=== PATIENT | female | born 1975 | race Caucasian/White ===

== ENCOUNTER 2018-05-20 22:35 | Emergency (ER) | payer MEDICAID ==
[~2018-05-20] VITALS: Ht 154.9 cm; Wt 77.1 kg
[~2018-05-20 22:35] MED LIST: PHEN1TAB64
[2018-05-20] MEDS ORDERED: cloNIDine HCL 0.1 MG TAB PO ONE (23:00)
[2018-05-20 23:32] LABS: Basophils # (auto) 0.1 uL; Basophils % (auto) 0.9 % (0.0-2.0); Eosinophils # (auto) 0.6 uL; Eosinophils % (auto) 7.8 % (0.0-7.0); Hematocrit 39.9 % (36.0-46.0); Hemoglobin 13.3 g/dL (12.2-16.2); Lymphocytes # (auto) 2.2 uL; Lymphocytes % (auto) 27.8 % (10.0-50.0); Mean Corpuscular Hemoglobin 29.1 pg (28.0-32.0); Mean Corpuscular Hgb Conc. 33.3 g/dL (32.0-36.0); Mean Corpuscular Volume 87.2 fL (80.0-100.0); Monocytes # (auto) 0.7 uL; Monocytes % (auto) 8.9 % (0.0-12.0); Neutrophils # (auto) 4.4 uL; Neutrophils % (auto) 54.6 % (37.0-80.0); Platelet Count (auto) 258 10^3/uL (140-450); Red Blood Cells 4.57 10^6/uL (4.0-5.20); Red Cell Distribution Width 13.4 % (11.8-14.3)
[2018-05-20 23:43] LABS: Alanine Aminotransferase 84 U/L (13-56); Albumin 3.7 g/dL (3.4-5.0); Anion Gap 5 (5-15); Aspartate Aminotransferase 45 U/L (15-37); Blood Urea Nitrogen 20 mg/dL (7-18); Calcium 8.6 mg/dL (8.5-10.1); Carbon Dioxide 26 mmol/L (21-32); Chloride 107 mmol/L (98-107); Glucose 105 mg/dL (74-106); Magnesium 2.1 mg/dL (1.6-2.6); Potassium 3.6 mmol/L (3.5-5.1); Sodium 138 mmol/L (136-145)
[2018-05-20 23:48] LABS: Alkaline Phosphatase 80 U/L (45-117); BUN/Creatinine Ratio 29.4; Bilirubin, Total 0.1 mg/dL (0.2-1.0); GFR African American 121 mL/min; GFR Non-African American 100 mL/min; Total Protein 6.8 g/dL (6.4-8.2)
[2018-05-21 03:33] VITALS: BP 157/88
== END 2018-05-21 03:14 | disposition home or self-care (01) ==
LOC: ER 22:37
DX: F41.9 Anxiety disorder, unspecified (principal)
CPT/HCPCS: 36415; 71046; 80053; 83735; 84484; 85025; 93005

== ENCOUNTER → 2019-08-01 | Emergency (ER) | payer MEDICAID ==
[~2019-08-01] VITALS: Ht 154.9 cm; Wt 83.5 kg
[~2019-08-01] MED LIST changes: +LORazepam 0.5 MG TAB PO ONE
[2019-08-01 15:45] LABS: Basophils # (auto) 0.1 uL; Basophils % (auto) 1.1 % (0.0-2.0); Eosinophils # (auto) 0.5 uL; Eosinophils % (auto) 6.6 % (0.0-7.0); Hematocrit 43.4 % (36.0-46.0); Hemoglobin 14.4 g/dL (12.2-16.2); Lymphocytes # (auto) 2.1 uL; Lymphocytes % (auto) 25.2 % (10.0-50.0); Mean Corpuscular Hemoglobin 29.3 pg (28.0-32.0); Mean Corpuscular Hgb Conc. 33.1 g/dL (32.0-36.0); Mean Corpuscular Volume 88.5 fL (80.0-100.0); Monocytes # (auto) 0.7 uL; Monocytes % (auto) 8.9 % (0.0-12.0); Neutrophils # (auto) 4.7 uL; Neutrophils % (auto) 58.2 % (37.0-80.0); Nucleated Red Blood Cells % 0.1 %; Platelet Count (auto) 262 10^3/uL (140-450); White Blood Cell 8.2 10^3/uL (4.4-10.8)
[2019-08-01 15:51] LABS: Calcium 9.3 mg/dL (8.5-10.1); Potassium 4.3 mmol/L (3.5-5.1)
[2019-08-01 15:57] LABS: Albumin 4.1 g/dL (3.4-5.0); BUN/Creatinine Ratio 27.3; Bilirubin, Total 0.5 mg/dL (0.2-1.0); Total Protein 7.8 g/dL (6.4-8.2)
[2019-08-01 16:03] LABS: Urine Bacteria NONE SEEN /hpf (None Seen); Urine Blood TRACE /uL (Negative); Urine Mucus FEW (None Seen); Urine Specific Gravity 1.025 (1.001-1.035); Urine WBC 6 /hpf (0 - 5)
[2019-08-01 16:07] LABS: Alcohol, Urine < 3.0 mg/dL (0-5); Amphetamine Screen, Urine NEGATIVE (NEGATIVE); Barbiturate Scree,Urine NEGATIVE (NEGATIVE); Benzodiazephine Screen, Urine NEGATIVE (NEGATIVE); Cannabinoid Screen, Urine NEGATIVE (NEGATIVE); Cocaine Screen, Urine NEGATIVE (NEGATIVE); Opiate Scree,Urine NEGATIVE (NEGATIVE); Phencyclidine Screen, Urine NEGATIVE (NEGATIVE)
[2019-08-01 17:16] VITALS: BP 153/97
== END | disposition home or self-care (01) ==
LOC: ER 13:15
DX: R42 Dizziness and giddiness (principal); F41.9 Anxiety disorder, unspecified; N39.0 Urinary tract infection, site not specified; R74.8 Abnormal levels of other serum enzymes; F17.210 Nicotine dependence, cigarettes, uncomplicated
CPT/HCPCS: 36415; 70450; 80053; 80307; 81001; 85025; 93005

== ENCOUNTER 2021-05-13 22:35 | Emergency (ER) | payer MEDICAID ==
[~2021-05-13] VITALS: Ht 152.4 cm; Wt 80.7 kg
[~2021-05-13 22:35] MED LIST changes: -LORazepam 0.5 MG TAB PO ONE; +PHEN-1325; -PHEN1TAB64
[2021-05-14 00:15] LABS: Basophils # (auto) 0.1 10 ^3/uL (0-0.2); Eosinophils % (auto) 11.8 % (0.0-7.0); Hemoglobin 14.1 g/dL (12.2-16.2); Lymphocytes # (auto) 2.7 10 ^3/uL (0.4-5.4); Lymphocytes % (auto) 31.7 % (10.0-50.0); Mean Corpuscular Hemoglobin 29.5 pg (28.0-32.0); Mean Corpuscular Hgb Conc. 33.6 g/dL (32.0-36.0); Mean Corpuscular Volume 87.8 fL (80.0-100.0); Monocytes # (auto) 0.7 10 ^3/uL (0-1.3); Neutrophils # (auto) 4.1 10 ^3/uL (1.6-8.6); Neutrophils % (auto) 47.5 % (37.0-80.0); Red Blood Cells 4.79 10^6/uL (4.0-5.20); Red Cell Distribution Width 13.4 % (11.8-14.3); White Blood Cell 8.6 10^3/uL (4.4-10.8)
[2021-05-14 00:58] LABS: Calcium 9.2 mg/dL (8.5-10.1)
[2021-05-14 01:25] LABS: BUN/Creatinine Ratio 20.3; Bilirubin, Total 0.2 mg/dL (0.2-1.0); Potassium 4.1 mmol/L (3.5-5.1); Total Protein 7.4 g/dL (6.4-8.2)
[2021-05-14 02:32] LABS: Urine Bacteria NONE SEEN /hpf (None Seen); Urine Blood Negative /uL (Negative); Urine WBC 28 /hpf (0 - 5)
[2021-05-14 04:35] VITALS: BP 153/98
[2021-05-14] MEDS ORDERED: IOHEXOL 300 MG/ML 100ML BOTTLE IJ ONE (05:55)
== END 2021-05-14 07:28 | disposition still patient (30) ==
LOC: ER 22:36
DX: R10.13 Epigastric pain (principal); R11.2 Nausea with vomiting, unspecified; R07.89 Other chest pain; Z87.891 Personal history of nicotine dependence; Z79.899 Other long term (current) drug therapy
CPT/HCPCS: 36415; 71045; 74177; 80053; 81001; 83605; 83690; 83880; 84484; 85025; 93005; 99285; Q9967

== ENCOUNTER 2022-05-04 08:33 | Emergency (ER) | payer MEDICAID ==
[~2022-05-04] VITALS: Ht 157.5 cm; Wt 81.0 kg
[2022-05-04] MEDS ORDERED: ASPirin 81 mg TAB PO ONE (09:00)
[2022-05-04 09:10] LABS: Basophils # (auto) 0.1 10 ^3/uL (0-0.2); Basophils % (auto) 1.1 % (0.0-2.0); Eosinophils # (auto) 0.6 10 ^3/uL (0-0.8); Eosinophils % (auto) 6.5 % (0.0-7.0); Hemoglobin 13.4 g/dL (12.2-16.2); Lymphocytes # (auto) 2.7 10 ^3/uL (0.4-5.4); Lymphocytes % (auto) 31.9 % (10.0-50.0); Mean Corpuscular Hemoglobin 28.4 pg (28.0-32.0); Mean Corpuscular Hgb Conc. 32.8 g/dL (32.0-36.0); Mean Corpuscular Volume 86.8 fL (80.0-100.0); Monocytes # (auto) 0.7 10 ^3/uL (0-1.3); Monocytes % (auto) 8.4 % (0.0-12.0); Neutrophils # (auto) 4.5 10 ^3/uL (1.6-8.6); Neutrophils % (auto) 52.1 % (37.0-80.0); Red Blood Cells 4.73 10^6/uL (4.0-5.20); Red Cell Distribution Width 14.4 % (11.8-14.3); White Blood Cell 8.6 10^3/uL (4.4-10.8)
[2022-05-04 09:28] LABS: INR 0.95 (0.9-1.15); Partial Thromboplastin Time 26.3 sec (24.6-33.4)
[2022-05-04 09:31] LABS: Albumin 3.7 g/dL (3.4-5.0); Calcium 9.2 mg/dL (8.5-10.1); Potassium 4.4 mmol/L (3.5-5.1)
[2022-05-04 09:34] LABS: BUN/Creatinine Ratio 22.1; Bilirubin, Total 0.2 mg/dL (0.2-1.0); Total Protein 6.7 g/dL (6.4-8.2)
[2022-05-04 09:57] LABS: Urine Amorphous Crystal FEW /hpf (None Seen); Urine Bacteria NONE SEEN /hpf (None Seen); Urine Blood TRACE /uL (Negative); Urine Mucus FEW (None Seen); Urine Specific Gravity 1.027 (1.001-1.035); Urine WBC 1 /hpf (0 - 5)
[2022-05-04 13:37] VITALS: BP 152/95
== END 2022-05-04 13:38 | disposition home or self-care (01) ==
LOC: ER 08:33
DX: R07.89 Other chest pain (principal); E78.5 Hyperlipidemia, unspecified; F17.210 Nicotine dependence, cigarettes, uncomplicated; Z98.51 Tubal ligation status
CPT/HCPCS: 36415; 71045; 80053; 81001; 83880; 84484; 85025; 85379; 85610; 85730; 93005

== ENCOUNTER 2023-01-27 13:19 | Emergency (ER) | payer MEDICAID ==
[~2023-01-27] VITALS: Ht 157.5 cm; Wt 82.5 kg
[2023-01-27] MEDS ORDERED: PANTOPRAZOLE 40 MG/10 ML VIAL INJ IV ONE (13:45)
[2023-01-27 13:59] LABS: Basophils # (auto) 0.1 10 ^3/uL (0-0.2); Eosinophils # (auto) 0.5 10 ^3/uL (0-0.8); Eosinophils % (auto) 5.6 % (0.0-7.0); Hematocrit 41.1 % (36.0-46.0); Hemoglobin 13.8 g/dL (12.2-16.2); Lymphocytes # (auto) 2.3 10 ^3/uL (0.4-5.4); Lymphocytes % (auto) 23.9 % (10.0-50.0); Mean Corpuscular Hemoglobin 29.3 pg (28.0-32.0); Mean Corpuscular Hgb Conc. 33.5 g/dL (32.0-36.0); Mean Corpuscular Volume 87.5 fL (80.0-100.0); Monocytes # (auto) 0.7 10 ^3/uL (0-1.3); Monocytes % (auto) 7.3 % (0.0-12.0); Neutrophils % (auto) 62.2 % (37.0-80.0); Nucleated Red Blood Cells % 0.1 %; Red Blood Cells 4.69 10^6/uL (4.0-5.20); Red Cell Distribution Width 15.1 % (11.8-14.3); White Blood Cell 9.6 10^3/uL (4.4-10.8)
[2023-01-27 14:20] LABS: BUN/Creatinine Ratio 19.1 (10.0-20.0); Calcium 9.5 mg/dL (8.5-10.1); Potassium 4.3 mmol/L (3.5-5.1)
[2023-01-27 14:23] LABS: Bilirubin, Total 0.4 mg/dL (0.2-1.0); Total Protein 7.3 g/dL (6.4-8.2)
[2023-01-27 14:50] LABS: Urine Amorphous Crystal FEW /hpf (None Seen); Urine Bacteria NONE SEEN /hpf (None Seen); Urine Blood Negative /uL (Negative); Urine Clarity CLOUDY (Clear); Urine Color Yellow (Yellow); Urine Protein, UAD TRACE (Negative); Urine Specific Gravity 1.021 (1.001-1.035); Urine Urobilinogen Normal (Negative); Urine WBC 40 /hpf (0 - 5); Urine WBC Clumps PRESENT /hpf (None Seen); Urine pH 7.5 (5.0-8.0)
[2023-01-27] MEDS ORDERED: CIPR-173 PO (14:55)
[2023-01-27] MEDS ORDERED: ZOFR4T PO (14:55)
[2023-01-27] MEDS ORDERED: PANT40TA2 PO (14:55)
[2023-01-27 15:36] VITALS: BP 122/90; PULSE 95; RESP 18; TEMP 98.8; O2SAT 98
== END 2023-01-27 15:39 | disposition home or self-care (01) ==
LOC: ER 13:19
DX: N39.0 Urinary tract infection, site not specified (principal); E11.9 Type 2 diabetes mellitus without complications; E78.5 Hyperlipidemia, unspecified; F17.210 Nicotine dependence, cigarettes, uncomplicated; Z98.51 Tubal ligation status
CPT/HCPCS: 36415; 76705; 80053; 81001; 83690; 84484; 85025; 93005; 96374; 99285; C9113; J7030

== ENCOUNTER 2024-01-29 18:20 | Inpatient (IN) | payer MEDICAID ==
[~2024-01-29] VITALS: Ht 157.5 cm; Wt 81.7 kg
[~2024-01-29 18:20] MED LIST changes: +CIPR-173 PO; +PANT40TA2 PO; +ZOFR4T PO
[2024-01-29 19:01] LABS: Basophils # (auto) 0.1 10 ^3/uL (0-0.2); Eosinophils # (auto) 0.5 10 ^3/uL (0-0.8); Eosinophils % (auto) 5.8 % (0.0-7.0); Hematocrit 41.3 % (36.0-46.0); Hemoglobin 13.6 g/dL (12.2-16.2); Lymphocytes # (auto) 2.3 10 ^3/uL (0.4-5.4); Lymphocytes % (auto) 27.3 % (10.0-50.0); Mean Corpuscular Hemoglobin 28.6 pg (28.0-32.0); Mean Corpuscular Hgb Conc. 32.9 g/dL (32.0-36.0); Mean Corpuscular Volume 86.9 fL (80.0-100.0); Monocytes # (auto) 0.7 10 ^3/uL (0-1.3); Monocytes % (auto) 8.2 % (0.0-12.0); Neutrophils # (auto) 4.8 10 ^3/uL (1.6-8.6); Neutrophils % (auto) 57.7 % (37.0-80.0); Nucleated Red Blood Cells % 0.1 %; Platelet Count (auto) 247 10^3/uL (140-450); Red Blood Cells 4.75 10^6/uL (4.0-5.20); Red Cell Distribution Width 13.6 % (11.8-14.3); White Blood Cell 8.4 10^3/uL (4.4-10.8)
[2024-01-29 19:10] LABS: Alanine Aminotransferase 41 U/L (7-40); Albumin 4.6 g/dL (3.2-4.8); Alkaline Phosphatase 105 U/L (46-116); Anion Gap 6 (5-15); Aspartate Aminotransferase 21 U/L (13-40); BUN/Creatinine Ratio 22.8 (10.0-20.0); Bilirubin, Total 0.5 mg/dL (0.2-1.0); Blood Urea Nitrogen 18 mg/dL (9-23); Calcium 10.3 mg/dL (8.7-10.4); Carbon Dioxide 27 mmol/L (20-30); Chloride 108 mmol/L (98-107); Glucose 103 mg/dL (74-106); Potassium 3.8 mmol/L (3.5-5.1); Sodium 141 mmol/L (136-145); Total Protein 6.8 g/dL (5.7-8.2)
[2024-01-29 19:45] LABS: Urine Bacteria None Seen /hpf (None Seen)
[2024-01-29 20:05] LABS: Amphetamine Screen, Urine Neg (NEGATIVE); Barbiturate Scree,Urine Neg (NEGATIVE); Benzodiazephine Screen, Urine Neg (NEGATIVE); Cannabinoid Screen, Urine Neg (NEGATIVE); Cocaine Screen, Urine Neg (NEGATIVE); Opiate Scree,Urine Neg (NEGATIVE); Phencyclidine Screen, Urine Neg (NEGATIVE); Urine Blood Negative /uL (Negative); Urine Clarity Clear (Clear); Urine Color Light-Yellow (Yellow); Urine Protein, UAD Negative (Negative); Urine Specific Gravity 1.011 (1.001-1.035); Urine Urobilinogen Normal (Negative); Urine WBC 1 /hpf (0 - 5); Urine pH 5.5 (5.0-9.0)
[2024-01-29] MEDS: ASPirin 325 MG TAB PO ONE (22:24)
[2024-01-29] MEDS: NITROGLYCERIN 0.4 MG SL TAB SL ONE (22:25)
[2024-01-29 23:08] VITALS: PULSE 78; RESP 18; O2SAT 98
[2024-01-29] MEDS ORDERED: NITROGLYCERIN 0.4 MG SL TAB SL PRN (23:15)
[2024-01-29] MEDS ORDERED: MORPHINE SULFATE INJ 2 MG/ml SYRG IV PRN (23:15)
[2024-01-29] MEDS ORDERED: TEMAZEPAM 15 MG CAP PO PRN (23:15)
[2024-01-29] MEDS ORDERED: ONDANSETRON HCL 4 MG/2 ML VIAL IV PRN (23:15)
[2024-01-30] VITALS (10 sets, daily range): BP systolic 119–174; BP diastolic 77–102; PULSE 64–117; RESP 14–18; TEMP 97.7–98.3; O2SAT 98–100
[2024-01-30] MEDS: hydrALAZINE HCL 20 MG/ML VL IV PRN (01:54)
[2024-01-30] MEDS ORDERED: LEVO125T7 PO (03:07)
[2024-01-30] MEDS ORDERED: ATOR-507 PO (03:07)
[2024-01-30] MEDS: ACETAMINOPHEN 325 MG TAB PO PRN (03:11)
[2024-01-30] MEDS: LEVOTHYROXINE SODIUM 50 MCG TAB PO SCH (05:47)
[2024-01-30 07:03] LABS: Chloride 110 mmol/L (98-107); Potassium 4.1 mmol/L (3.5-5.1); Sodium 142 mmol/L (136-145)
[2024-01-30 07:04] LABS: Anion Gap 6 (5-15); Carbon Dioxide 26 mmol/L (20-30)
[2024-01-30 07:09] LABS: BUN/Creatinine Ratio 25.8 (10.0-20.0); Blood Urea Nitrogen 17 mg/dL (9-23); Glucose 95 mg/dL (74-106)
[2024-01-30] MEDS ORDERED: NIFEdipine ER 30 MG TAB PO ONE (08:30)
[2024-01-30] MEDS: ASPirin 81 mg TAB PO SCH (09:14)
[2024-01-30] MEDS: LISINOPRIL 5 MG TAB PO SCH (09:16)
[2024-01-30] MEDS: NIFEdipine ER 30 MG TAB PO SCH (09:17)
[2024-01-30] MEDS: ENOXAPARIN SOD 40 MG/0.4 ML SYRINGE SC SCH (09:18)
[2024-01-30] MEDS ORDERED: amLODIPine BESYLATE 5 MG TAB PO SCH (10:00)
[2024-01-30] MEDS ORDERED: METOPROLOL SUCCINATE XL 50 MG TAB PO SCH (10:00)
[2024-01-30] MEDS: REGADENOSON 0.4 MG/5 ML SYRG IV ONE ×2 (14:35→14:44)
[2024-01-30] MEDS: LORazepam 2MG/ML-1ML VIAL IV ONE (15:21)
[2024-01-30 15:51] LABS: Triglycerides 116 mg/dL (< 150)
[2024-01-30 15:52] LABS: LDL Cholesterol 103 mg/dL (< 100)
[2024-01-30 15:53] LABS: Cholesterol 175 mg/dL (< 200); HDL Cholesterol 55 mg/dL (40-59)
[2024-01-30 16:13] LABS: Free T3 3.1 pg/mL (2.3-4.2); Free T4 (Free Thyroxine) 1.28 ng/dL (0.89-1.76)
[2024-01-30] MEDS: ATORVASTATIN 20 MG TAB PO SCH (21:19)
[2024-01-31 05:00] VITALS: BP 107/69; PULSE 95; RESP 18; TEMP 97.7; O2SAT 96
[2024-01-31 08:00] VITALS: PULSE 84; RESP 18; O2SAT 99
[2024-01-31 08:51] VITALS: BP 116/81; PULSE 99; RESP 16; TEMP 98.2; O2SAT 97
[2024-01-31] MEDS: LISINOPRIL 5 MG TAB PO SCH (08:58)
[2024-01-31 13:00] VITALS: BP 116/69; PULSE 89; RESP 16; TEMP 98; O2SAT 97
[2024-01-31] MEDS ORDERED: AMLO1TAB23 PO (13:05)
[2024-01-31 13:49] VITALS: BP 116/81; PULSE 78; RESP 17; TEMP 36.7; O2SAT 99
== END 2024-01-31 14:50 | disposition home or self-care (01) | DRG 194 ==
LOC: ER 18:20 → TELE-WESTW 20:14 → TELE 23:05 → TELE-WESTW 01-30 02:15
PROVIDERS: ADMIT Nurse Practitioner; ATTEND Nurse Practitioner Acute Care
DX: I11.0 Hypertensive heart disease with heart failure (principal); I16.0 Hypertensive urgency; I50.31 Acute diastolic (congestive) heart failure; E03.9 Hypothyroidism, unspecified; E78.5 Hyperlipidemia, unspecified; E66.9 Obesity, unspecified; F10.10 Alcohol abuse, uncomplicated; J44.9 Chronic obstructive pulmonary disease, unspecified; Z79.899 Other long term (current) drug therapy; Z68.32 Body mass index [BMI] 32.0-32.9, adult; Z82.49 Family history of ischemic heart disease and other diseases of the circulatory system; Y90.9 Presence of alcohol in blood, level not specified
CPT/HCPCS: 36415; 71045; 78452; 80048; 80053; 80061; 80307; 81001; 83036; 84439; 84443; 84481; 84484; 84550; 84702; 85025; 85379; 86141; 93005; 93017; 93306; 93976; 96374; G0378

== ENCOUNTER 2024-04-15 12:01 | Inpatient (IN) | payer MEDICAID ==
[~2024-04-15] VITALS: Ht 157.5 cm; Wt 81.2 kg
[~2024-04-15 12:01] MED LIST changes: +AMLO1TAB23 PO; +ATOR-507 PO; -CIPR-173 PO; +LEVO125T7 PO; -PANT40TA2 PO; -PHEN-1325; -ZOFR4T PO
--- NOTE | 2024-04-15 12:23 | ED.PDOC ---
History of Present Illness HPI Comments 8-year-old female came to the ER stating that she had two bouts of bright red blood per rectum this morning. She denies any straining. She does have history of constipation. She states that today she did not strain. Denies use of blood thinner. She does have a history of hypertension thyroid disorder. Apart from blood per rectum she states that she has palpitations along with chest discomfort. She states that her chest discomfort is not new. Denies nausea vomiting diarrhea. States her pain is 7/10. Blood pressure on arrival was systolic 142. Heart rate within normal limits. Denies any other symptoms. Chief Complaint: GI Bleed Time Seen by MD: 12:04 Primary Care Provider: STEPHAN Pérez Notes: Nurses Notes, Medications, Allergies Allergies: Coded Allergies: NO KNOWN ALLERGIES (Unverified , 11/12/10) Home Meds Active Scripts Amlodipine Besylate (Amlodipine Besylate) 10 Mg Tab, 10 MG PO DAILY for 30 Days, #30 TAB 3 Refills Prov:[facility] NUC[employer] PHYSICS PROFESSOR 01/31/24 Reported Medications Atorvastatin Calcium (Lipitor) 40 Mg Tab, 1 TAB PO QPM, #90 TAB 1 Refill 01/30/24 Levothyroxine Sodium (Levothyroxine Sodium) 125 Mcg Tab, 125 MCG PO QAM for 30 Days, MCG 01/30/24 Information Source: Patient Mode of Arrival: Ambulatory Severity: Moderate Timing: Hours Duration: Since onset Past Medical History PAST MEDICAL HISTORY: DM, High Lipids, Thyroid Surgical History: BTL CLEANER ASSISTANT History: No Pertinent CLEANER ASSISTANT History Family History Family History: Reviewed,noncontributory to illness, Family hx of heart trinh, Family hx of HTN Social History Smoker: Cigarettes Alcohol: Occasionally Drugs: Denies Drug Use Lives In: Home Constitutional: denies: chills, diaphoresis, fatigue, fever, malaise, sweats, weakness, others EENTM: denies: blurred vision, double vision, ear bleeding, ear discharge, ear drainage, ear pain, ear ringing, eye pain, eye redness, hearing loss, mouth pain, mouth swelling, nasal discharge, nose bleeding, nose congestion, nose pain, photophobia, tearing, throat pain, throat swelling, voice changes, others Respiratory: denies: cough, hemoptysis, orthopnea, SOB at rest, shortness of breath, SOB with excertion, stridor, wheezing, others Cardiovascular: reports: chest pain; denies: dizzy spells, diaphoresis, Dyspnea on exertion, edema, irregular heart beat, left arm pain, lightheadedness, palpitations, PND, syncope, others Gastrointestinal: reports: rectal bleeding; denies: abdomen distended, abdominal pain, blood streaked bowels, constipated, diarrhea, dysphagia, difficulty swallowing, hematemesis, melena, nausea, poor appetite, poor fluid intake, rectal pain, vomiting, others Genitourinary: denies: abnormal vagina bleeding, burning, dyspareunia, dysuria, flank pain, frequency, hematuria, incontinence, pain, , vagina discharge, urgency, others Neurological: denies: dizziness, fainting, headache, left sided numbness, left sided weakness, numbness, paresthesia, pre-existing deficit, right sided numbness, right sided weakness, seizure, speech problems, tingling, tremors, weakness, others Musculoskeletal: denies: back pain, gout, joint pain, joint swelling, muscle pain, muscle stiffness, neck pain, others Integumetry: denies: bruises, change in color, change in hair/nails, dryness, laceration, lesions, lumps, rash, wounds, others Allergic/Immunocompromised: denies: Difficulty Healing, Frequent Infections, Hives, Itching, others Hematologic/Lymphatic: denies: anemia, blood clots, easy bleeding, easy bruising, swollen glands, others Endocrine: denies: excessive hunger, excessive sweating, excessive thirst, excessive urination, flushing, intolerance to cold, intolerance to heat, unexplained weight gain, unexplained weight loss, others Psychiatric: denies: anxiety, bipolar disorder, depression, hopeless, panic disorder, schizophrenia, sleepless, suicidal, others Physical Exam General Appearance: Moderate Distress HEENT: Normal ENT Inspection, Pharynx Normal, TMs Normal Neck: Full Range of Motion, Non-Tender, Normal, Normal Inspection Respiratory: Chest Non-Tender, Lungs Clear, No Accessory Muscle Use, No Respiratory Distress, Normal Breath Sounds Cardiovascular: No Edema, No JVD, No Murmur, No Gallop, Normal Peripheral Pulses, Regular Rate/Rhythm Breast Exam: Deferred Gastrointestinal: No Organomegaly, Non Tender, No Pulsatile Mass, Normal Bowel Sounds, Soft Genitalia: Deferred Pelvic: Deferred Rectal: Deferred Extremities: No calf tenderness, Normal capillary refill, Normal inspection, Normal range of motion, Non-tender, No pedal edema Musculoskeletal : Apperance: Normal Neurologic: Alert, electrical engineer II-XII nml as Tested, No Motor Deficits, Normal Affect, Normal Mood, No Sensory Deficits Cerebellar Function: Normal Reflexes: Normal Skin: Dry, Normal Color, Warm Peripheral Pulses: 3+ Radial (R), 3+ Radial (L) Lymphatic: No Adenopathy Was a procedure done? Was a procedure done?: No Differential Dx Considerations may include: Anemia Electrolyte imbalance X-Ray, Labs, Meds, VS Vital Signs Date Time Temp Pulse Resp B/P (MAP) Pulse Ox O2 Delivery O2 Flow Rate FiO2 04/15/24 12:10 98.6 84 18 142/90 (107) 99 Patient alert. Complaining of GI bleeding. Vitals stable. Answering all questions. Was given GI cocktail. Blood pressure slightly elevated. Reviewed her previous history. Explained to the patient her treatment plan. Continue cardiac monitoring. Time of 1ST Reevaluation: 12:21 Reevaluation 1ST: Unchanged Patient Education/Counseling: Diagnosis, Treatment, Prognosis Family Education/Counseling: No Family Present Departure 1 Departure Time of Disposition: 12:22 Impression: Primary Impression: GI bleed Qualified Codes: K92.2 - Gastrointestinal hemorrhage, unspecified Additional Impressions: Chest pain of unknown etiology Gastritis Qualified Codes: K29.00 - Acute gastritis without bleeding Disposition: ADMITTED INPATIENT Admit to: Med Surg Condition: Guarded Critical Care Note Critical Care Time?: Yes (45 min-critical care time only) Stability Stability form required: No Heart Score Heart Score: Heart Score Response (Comments) Value History N/A 0 EKG N/A 0 Age N/A 0 Risk Factors N/A 0 Troponin N/A 0 Total 0 JAIR SORIA MD Apr 15, 2024 12:23
[2024-04-15 12:44] LABS: Basophils # (auto) 0.1 10 ^3/uL (0-0.2); Basophils % (auto) 0.9 % (0.0-2.0); Eosinophils # (auto) 0.6 10 ^3/uL (0-0.8); Eosinophils % (auto) 7.1 % (0.0-7.0); Hematocrit 42.6 % (36.0-46.0); Hemoglobin 14.4 g/dL (12.2-16.2); Lymphocytes # (auto) 2.2 10 ^3/uL (0.4-5.4); Lymphocytes % (auto) 28.4 % (10.0-50.0); Mean Corpuscular Hgb Conc. 33.8 g/dL (32.0-36.0); Monocytes # (auto) 0.8 10 ^3/uL (0-1.3); Monocytes % (auto) 9.7 % (0.0-12.0); Neutrophils # (auto) 4.3 10 ^3/uL (1.6-8.6); Neutrophils % (auto) 53.9 % (37.0-80.0); Nucleated Red Blood Cells % 0.1 %; Platelet Count (auto) 284 10^3/uL (140-450); Red Blood Cells 4.95 10^6/uL (4.0-5.20); Red Cell Distribution Width 13.4 % (11.8-14.3); White Blood Cell 7.9 10^3/uL (4.4-10.8)
[2024-04-15] MEDS: LIDOCAINE VISCOUS 2% 15ML UD PO ONE (12:56)
[2024-04-15] MEDS: DONNATAL 5ml ORAL Elix (BELLADONNA ALK-PHENOBARB) PO ONE (12:57)
[2024-04-15] MEDS: MAALOX PLUS or MAALOX 30 ML PO ONE (12:57)
[2024-04-15 12:58] LABS: Chloride 107 mmol/L (98-107); Potassium 4.4 mmol/L (3.5-5.1); Sodium 140 mmol/L (136-145)
[2024-04-15 12:59] VITALS: PULSE 84; RESP 18; O2SAT 98
[2024-04-15 12:59] LABS: Anion Gap 5 (5-15); Calcium 10.6 mg/dL (8.7-10.4); Carbon Dioxide 28 mmol/L (20-31)
[2024-04-15 13:04] LABS: BUN/Creatinine Ratio 18.8 (10.0-20.0); Blood Urea Nitrogen 15 mg/dL (9-23); Glucose 98 mg/dL (74-106)
[2024-04-15 13:14] LABS: Urine Bacteria FEW /hpf (None Seen); Urine Blood Negative /uL (Negative); Urine Clarity Turbid (Clear); Urine Color Colorless (Yellow); Urine Protein, UAD Negative (Negative); Urine Urobilinogen Normal (Negative); Urine WBC 3 /hpf (0 - 5); Urine pH 7.5 (5.0-9.0)
[2024-04-15] MEDS ORDERED: NITROGLYCERIN 0.4 MG SL TAB SL PRN (21:30)
[2024-04-15] MEDS ORDERED: MORPHINE SULFATE INJ 2 MG/ml SYRG IV PRN ×2 (21:30)
[2024-04-15] MEDS ORDERED: ENOXAPARIN SOD 40 MG/0.4 ML SYRINGE SC SCH (21:30)
[2024-04-15] MEDS ORDERED: ACETAMINOPHEN 325 MG TAB PO PRN (21:30)
[2024-04-15] MEDS ORDERED: ONDANSETRON HCL 4 MG/2 ML VIAL IV PRN (21:30)
--- NOTE | 2024-04-15 22:02 | DVHHPRES ---
History of Present Illness Resident Creating Document: CARTER PATEL RESIDENT History of Present Illness ANA ROMAN is a 48 years old female with a PMH of pre DM, HLD, hypothyroidism, heart disease, HTN presented to the ED with the chief complaints of 3 episodes of bright red blood per rectum today morning. Patient reported s he had 3 episodes of red blood in the stool associated with mucus, painless but crampy lower abdominal pain but denies nausea, vomiting, diarrhea, chest pain, shortness of breath, fatigue and other associated symptoms. Patient denies recent travel or sick contacts. Past Medical History Pre DM, HLD, hypothyroidism, HTN Past Surgical History: Tubal Ligation Family History heart disease in mother Past Social History Lives with the . 2 glasses of wine every day but denies smoking other drug abuse Review of Systems Constitutional: No: Fever, Chills, Sweats, Weakness, Malaise, Other Eyes: No: Pain, Vision change, Conjunctivae inflammation, Eyelid inflammation, Other, Redness ENT: No: Ear pain, Ear discharge, Nose pain, Nose discharge, Nose congestion, Mouth pain, Mouth swelling, Throat pain, Throat swelling, Other Respiratory: No: Cough, Dry, Shortness of breath, SOB with excertion, Wheezing, Hemoptysis, Pleuritic Pain, Sputum, Wheezing, Other Cardiovascular: No: Chest Pain, Palpitations, Orthopnea, Paroxysmal Noc. Dyspnea, Edema, Lt Headedness, Other Gastrointestinal: Abdominal Pain, Hematochezia Genitourinary: No Dysuria, No Frequency, No Incontinence, No Hematuria, No Retention, No Other Musculoskeletal: No: other, neck pain, shoulder pain, arm pain, back pain, hand pain, leg pain, foot pain Skin: No: Rash, Lesions, Jaundice, Bruising, Other Neurological: No: Weakness, Numbness, Incoordination, Change in speech, Confusion, Seizures, Other Allergies: Coded Allergies: NO KNOWN ALLERGIES (Unverified , 11/12/10) Medications Current Medications Medications Dose Ordered Sig/Ana Rosa Route Start Time Stop Time Status Last Admin Dose Admin Sodium Chloride 10 ml Q8HR IV 04/15/24 22:00 UNV Acetaminophen 325 mg Q4HP PRN PO 04/15/24 21:30 UNV Ondansetron HCl 4 mg Q4HP PRN IV 04/15/24 21:30 UNV Morphine Sulfate 2 mg Q4HPRN PRN IV 04/15/24 21:30 UNV Nitroglycerin 0.4 mg Q5MINP PRN SL 04/15/24 21:30 UNV Morphine Sulfate 2 mg Q30M PRN IV 04/15/24 21:30 UNV Patient Own Medication 10 mg DAILY PO 04/16/24 10:00 UNV Patient Own Medication 1 tab QPM PO 04/16/24 18:00 UNV Patient Own Medication 125 mcg QAM PO 04/16/24 07:00 UNV Exam Vital Signs Vital Signs Date Time Temp Pulse Resp B/P (MAP) Pulse Ox O2 Delivery O2 Flow Rate FiO2 04/15/24 20:20 98.3 81 16 122/81 (95) 99 98.3 04/15/24 19:30 Room Air* 0 21 Exam Pt is lying on bed General Appearance: Alert, Oriented X3, Cooperative, Not in acute distress HEENT: Atraumatic, Mucous membranes moist/pink Respiratory: Clear to auscultation, Normal air movement, No added sounds Cardiovascular: Regular rate, Normal S1, Normal S2, No murmurs Abdominal: Active bowel sounds, Soft, no distention, mild lower abdominal tenderness Extremities: No edema, Normal pulses, No tenderness/swelling Skin: No Significant rash, except past surgical scars Neuro: Normal speech, sensorimotor deficits none Psych/Mental Status: Mental status NL, Mood NL Nurse was there as sharperone during examination Labs/Xrays Labs Test 04/15/24 12:30 04/15/24 12:04 Range/Units White Blood Count 7.9 4.4-10.8 10^3/uL Red Blood Count 4.95 4.0-5.20 10^6/uL Hemoglobin 14.4 12.2-16.2 g/dL Hematocrit 42.6 36.0-46.0 % Mean Corpuscular Volume 86.0 80.0-100.0 fL Mean Corpuscular Hemoglobin 29.0 28.0-32.0 pg Mean Corpuscular Hemoglobin Concent 33.8 32.0-36.0 g/dL Red Cell Distribution Width 13.4 11.8-14.3 % Platelet Count 284 140-450 10^3/uL Mean Platelet Volume 8.5 6.9-10.8 fL Neutrophils (%) (Auto) 53.9 37.0-80.0 % Lymphocytes (%) (Auto) 28.4 10.0-50.0 % Monocytes (%) (Auto) 9.7 0.0-12.0 % Eosinophils (%) (Auto) 7.1 H 0.0-7.0 % Basophils (%) (Auto) 0.9 0.0-2.0 % Neutrophils # (Auto) 4.3 1.6-8.6 10 ^3/uL Lymphocytes # (Auto) 2.2 0.4-5.4 10 ^3/uL Monocytes # (Auto) 0.8 0-1.3 10 ^3/uL Eosinophils # (Auto) 0.6 0-0.8 10 ^3/uL Basophils # (Auto) 0.1 0-0.2 10 ^3/uL Nucleated Red Blood Cells 0.1 % Sodium Level 140 136-145 mmol/L Potassium Level 4.4 3.5-5.1 mmol/L Chloride Level 107 98-107 mmol/L Carbon Dioxide Level 28 20-31 mmol/L Anion Gap 5 5-15 Blood Urea Nitrogen 15 9-23 mg/dL Creatinine 0.80 0.550-1.02 mg/dL Glomerular Filtration Rate Calc 91 >90 mL/min BUN/Creatinine Ratio 18.8 10.0-20.0 Serum Glucose 98 74-106 mg/dL Calcium Level 10.6 H 8.7-10.4 mg/dL Urine Color Colorless Yellow Urine Clarity Turbid H Clear Urine pH 7.5 5.0-9.0 Urine Specific [place] 1.010 1.001-1.035 Urine Protein Negative Negative Urine Ketones Negative Negative Urine Blood Negative Negative /uL Urine Nitrite Negative Negative Urine Bilirubin Negative Negative Urine Urobilinogen Normal Negative mg/dL Urine Leukocyte Esterase Negative Negative /uL Urine RBC 1 0 - 4 /hpf Urine WBC 3 0 - 5 /hpf Urine Squamous Epithelial Cells Few <5 /hpf Urine Bacteria Few H None Seen /hpf Urine Glucose Normal Normal mg/dL Assessment/Plan Assessment/Plan # Lower GI bleed # ? hematochezia -SOB ordered -Monitor lab -ordered CT abdominal pelvis -clear liquid diet for now -consider GI evaluation if needed # hypertension -resumed home meds # hypothyroidism -resumed levothyroxine 125 mcg No VTE PPX since patient is bleeding Protonix Clear liquid diet Reconciled home meds Goals of care discussed with the patient and more than 27 minutes: Full code Case management discussed with Dr. Jeong, patient and nurse Plan discussed with: Patient My Orders Orders - CARTER PATEL RESIDENT Procedure Category Date Status Time Admit ADMIT 04/15/24 Transmitted 21:24 Allergies MICHELE 04/15/24 In Process 21:24 Code Status CODE 04/15/24 Transmitted 21:24 Sodium Chloride Lock PHA 04/15/24 Logged (Saline Lock Ns) 22:00 Acetaminophen Tablet PHA 04/15/24 Logged (Tylenol Tablet) 21:30 Ondansetron Hcl PHA 04/15/24 Logged (Zofran) 21:30 Complete Blood Count LAB 04/16/24 Verified 04:00 Comprehensive LAB 04/16/24 Verified Metabolic Panel 04:00 Clear Liq Diet DIET 04/16/24 Transmitted Breakfast Morphine Sulfate PHA 04/15/24 Logged Injection 21:30 Nitroglycerin PHA 04/15/24 Logged Sublingual (Ntrostat 21:30 Morphine Sulfate PHA 04/15/24 Logged Injection 21:30 Oxygen By Nasal RT 04/15/24 Transmitted Cannula 21:24 Stat Ekg For Chest [facility] 04/15/24 In Process Pain 21:24 Notify Of Changes [facility] 04/15/24 In Process From Base 21:24 Brickmason For [facility] 04/15/24 In Process 24 Hours 21:24 Emergency Dysrhythmia [facility] 04/15/24 In Process Protocol 21:24 Rhythm Strips Once [facility] 04/15/24 In Process Every Shift 21:24 Iron Panel LAB 04/15/24 Logged 21:24 Complete Blood Count LAB 04/15/24 Logged 21:24 Comprehensive LAB 04/15/24 Logged Metabolic Panel 21:24 Stool Occult Blood LAB 04/15/24 Logged 21:24 Drug Screen LAB 04/15/24 Logged 21:48 Hemoglobin A1c LAB 04/15/24 Logged 21:48 PTPTT LAB 04/16/24 Verified 04:00 Thyroid Stimulating LAB 04/15/24 Logged Hormone 21:48 Vitamin B12 LAB 04/15/24 Logged 21:48 Vitamin D, 25-Hydroxy LAB 04/15/24 Logged 21:[address]vis W CT 04/15/24 Logged Con-Oral & Iv 21:49 (Nf) Amlodipine PHA 04/16/24 Logged Besylate 10:00 (Nf) Atorvastatin PHA 04/16/24 Logged Calcium (Lipitor) 18:00 (Nf) Levothyroxine PHA 04/16/24 Logged Sodium 07:00 Pantoprazole PHA 04/15/24 Verified (Protonix) 22:00 CARTER PATEL RESIDENT Apr 15, 2024 22:02
[2024-04-15 22:14] LABS: Basophils # (auto) 0.1 10 ^3/uL (0-0.2); Basophils % (auto) 0.9 % (0.0-2.0); Eosinophils # (auto) 0.5 10 ^3/uL (0-0.8); Hematocrit 42.6 % (36.0-46.0); Hemoglobin 14.4 g/dL (12.2-16.2); Lymphocytes # (auto) 2.5 10 ^3/uL (0.4-5.4); Lymphocytes % (auto) 32.8 % (10.0-50.0); Mean Corpuscular Hgb Conc. 33.8 g/dL (32.0-36.0); Monocytes # (auto) 0.8 10 ^3/uL (0-1.3); Monocytes % (auto) 11.1 % (0.0-12.0); Neutrophils # (auto) 3.7 10 ^3/uL (1.6-8.6); Neutrophils % (auto) 49.2 % (37.0-80.0); Nucleated Red Blood Cells % 0.2 %; Platelet Count (auto) 269 10^3/uL (140-450); Red Blood Cells 4.96 10^6/uL (4.0-5.20); Red Cell Distribution Width 13.6 % (11.8-14.3); White Blood Cell 7.6 10^3/uL (4.4-10.8)
[2024-04-15] MEDS: PANTOPRAZOLE 40 MG/10 ML VIAL INJ IV SCH (22:25)
[2024-04-15] MEDS: SODIUM CHLOR 0.9% PF (SALINE LOCK) 10ML VIAL/SYR IV SCH (22:25)
[2024-04-15 22:30] LABS: % Iron Saturation 20.3 % (15-50)
[2024-04-15 22:34] LABS: Alanine Aminotransferase 42 U/L (7-40); Alkaline Phosphatase 107 U/L (46-116); Anion Gap 5 (5-15); Aspartate Aminotransferase 20 U/L (13-40); BUN/Creatinine Ratio 20.5 (10.0-20.0); Bilirubin, Total 0.6 mg/dL (0.2-1.0); Blood Urea Nitrogen 16 mg/dL (9-23); Calcium 10.6 mg/dL (8.7-10.4); Carbon Dioxide 30 mmol/L (20-31); Chloride 107 mmol/L (98-107); Glucose 88 mg/dL (74-106); Potassium 4.4 mmol/L (3.5-5.1); Sodium 142 mmol/L (136-145); Total Protein 7.4 g/dL (5.7-8.2)
[2024-04-15 23:50] VITALS: BP 136/81; PULSE 70; RESP 18; TEMP 98; O2SAT 94
[2024-04-16 01:00] VITALS: BP 136/81; PULSE 70; RESP 18; TEMP 98; O2SAT 92
[2024-04-16 05:00] VITALS: BP 132/78; PULSE 86; RESP 19; TEMP 97.8; O2SAT 98
[2024-04-16] MEDS: LEVOTHYROXINE SODIUM 100 MCG TAB PO SCH (06:14)
[2024-04-16] MEDS: LEVOTHYROXINE SODIUM 25 MCG TAB PO SCH (06:14)
[2024-04-16 08:00] VITALS: PULSE 73
[2024-04-16] MEDS ORDERED: GASTROGRAFIN 30 ML SOL ONE (08:26)
[2024-04-16 08:29] LABS: Basophils # (auto) 0.1 10 ^3/uL (0-0.2); Basophils % (auto) 0.9 % (0.0-2.0); Eosinophils # (auto) 0.5 10 ^3/uL (0-0.8); Eosinophils % (auto) 7.2 % (0.0-7.0); Hematocrit 41.7 % (36.0-46.0); Hemoglobin 14.1 g/dL (12.2-16.2); Lymphocytes % (auto) 28.7 % (10.0-50.0); Mean Corpuscular Hemoglobin 29.2 pg (28.0-32.0); Mean Corpuscular Hgb Conc. 33.8 g/dL (32.0-36.0); Mean Corpuscular Volume 86.5 fL (80.0-100.0); Monocytes # (auto) 0.7 10 ^3/uL (0-1.3); Monocytes % (auto) 10.2 % (0.0-12.0); Neutrophils # (auto) 3.6 10 ^3/uL (1.6-8.6); Nucleated Red Blood Cells % 0.1 %; Platelet Count (auto) 254 10^3/uL (140-450); Red Blood Cells 4.82 10^6/uL (4.0-5.20); Red Cell Distribution Width 13.5 % (11.8-14.3); White Blood Cell 6.8 10^3/uL (4.4-10.8)
[2024-04-16 08:53] LABS: INR 0.99 (0.9-1.15); Partial Thromboplastin Time 25.6 SEC (24.5-34.5); Prothrombin Time 10.5 sec (9.3-11.8)
[2024-04-16 08:57] LABS: Alanine Aminotransferase 42 U/L (7-40); Albumin 4.4 g/dL (3.2-4.8); Alkaline Phosphatase 98 U/L (46-116); Anion Gap 6 (5-15); Aspartate Aminotransferase 20 U/L (13-40); BUN/Creatinine Ratio 25.7 (10.0-20.0); Bilirubin, Total 0.6 mg/dL (0.2-1.0); Blood Urea Nitrogen 19 mg/dL (9-23); Carbon Dioxide 26 mmol/L (20-31); Chloride 110 mmol/L (98-107); Glucose 97 mg/dL (74-106); Potassium 4.4 mmol/L (3.5-5.1); Sodium 142 mmol/L (136-145); Total Protein 6.7 g/dL (5.7-8.2)
[2024-04-16 09:00] VITALS: BP 121/76; PULSE 71; RESP 16; TEMP 97.9; O2SAT 96
[2024-04-16] MEDS: amLODIPine BESYLATE 5 MG TAB PO SCH (10:00)
--- NOTE | 2024-04-16 10:43 | DVH ---
Exam: CT CT ABD PELVIS W CON-ORAL IV History: GI BLEED Comparison Study: TECHNIQUE: A digital wellness manager image was obtained. During the uneventful, intravenous administration of c ontrast material, multislice data acquisition was obtained through the abdomen and pelvis. The data s et was subsequently reconstructed into axial images. Images were reviewed on a work station using a c ombination of axial and multiplanar using a variety of window levels and settings. 100 cc of Omnipaqu e 300 contrast was injected intravenously. All CT scans at this medical facility are performed using dose modulation techniques as appropriate t o a performed exam including the following:Automated exposure control was utilized; adjustment of the MA and/or KV according to patient size; and use of iterative reconstruction technique. Radiation Dose Information: CT Dose: CTDI volume is 15 mGy. Dose-length product is 749 mGy*cm Comparison: CT AB PEL WITH IV CON ONLY on DOS: 05/14/21 FINDINGS: There is mild fatty infiltration of the liver . There is no suspicious appearing hepatic lesion. The gallbladder, pancreas, kidneys, adrenal glands, and spleen appear within normal limits. There is no evidence of abdominal lymphadenopathy. There is no free fluid or free air. The stomach grossly appears unremarkable. The small and large bowel loops demonstrate normal caliber. The abdominal aorta and IVC appear within normal limits. The bladder appears within normal limits the degree of distention. The uterus appears bulky and heter ogeneous likely related fibroid changes. There is no evidence of a pelvic mass or lymphadenopathy. T here is no free fluid collection. Lung bases are clear. There is no acute osseous abnormality. IMPRESSION: 1. There is no acute process in the abdomen and pelvis.. 2. Mild fatty infiltration of the liver. 3. Bulky heterogeneous fibroid uterus. HS:Y
[2024-04-16] MEDS ORDERED: IOHEXOL 300 MG/ML 100ML BOTTLE IJ ONE (11:15)
--- NOTE | 2024-04-16 12:39 | DVHINCON2 ---
GI Consult Consult Note GI consult note Date of Consultation: 04/16/2024 Chief Complaint: Lower GI bleed Referring Physician: Dr. Pineda H&P: 48-year-old female admitted with two episodes of bright red blood rectally yesterday. No bleeding today No abdominal pain. No nausea or vomiting Patient has history of constipation, worse since being treated with Ozempic. Started Ozempic one year ago Takes milk of magnesia which helps her No colonoscopy or endoscopy in past Past Medical History: DM, High Lipids, Thyroid Past Surgical History: BTL Social History: Smoker: Cigarettes Alcohol: Occasionally Drugs: Denies Drug Use Lives In: Home Family History: Noncontributory Review of Systems: Constitutional: no fever, chill, weight loss HEENT: no eye pain, no hearing loss, no oral lesion, no scleral icterus Heart: no chest pain, no chest pressure Lung: no cough, no dyspnea with exertion Abdomen: see HPI Physical exam: General: NAD, AAOX3 Chest: lung banda clear to auscultation Heart: RRR, no murmur Abdomen: non-distended, no tenderness to palpation, +BS Labs: Labs Test 04/16/24 11:22 04/16/24 10:30 04/16/24 07:11 04/15/24 21:49 Range/Units White Blood Count 6.8 4.4-10.8 10^3/uL Red Blood Count 4.82 4.0-5.20 10^6/uL Hemoglobin 14.1 12.2-16.2 g/dL Hematocrit 41.7 36.0-46.0 % Mean Corpuscular Volume 86.5 80.0-100.0 fL Mean Corpuscular Hemoglobin 29.2 28.0-32.0 pg Mean Corpuscular Hemoglobin Concent 33.8 32.0-36.0 g/dL Red Cell Distribution Width 13.5 11.8-14.3 % Platelet Count 254 140-450 10^3/uL Mean Platelet Volume 8.9 6.9-10.8 fL Neutrophils (%) (Auto) 53.0 37.0-80.0 % Lymphocytes (%) (Auto) 28.7 10.0-50.0 % Monocytes (%) (Auto) 10.2 0.0-12.0 % Eosinophils (%) (Auto) 7.2 H 0.0-7.0 % Basophils (%) (Auto) 0.9 0.0-2.0 % Neutrophils # (Auto) 3.6 1.6-8.6 10 ^3/uL Lymphocytes # (Auto) 2.0 0.4-5.4 10 ^3/uL Monocytes # (Auto) 0.7 0-1.3 10 ^3/uL Eosinophils # (Auto) 0.5 0-0.8 10 ^3/uL Basophils # (Auto) 0.1 0-0.2 10 ^3/uL Nucleated Red Blood Cells 0.1 % Prothrombin Time 10.5 9.3-11.8 sec Prothrombin Time INR 0.99 0.9-1.15 Activated Partial Thromboplast Time 25.6 24.5-34.5 SEC Sodium Level 142 136-145 mmol/L Potassium Level 4.4 3.5-5.1 mmol/L Chloride Level 110 H 98-107 mmol/L Carbon Dioxide Level 26 20-31 mmol/L Anion Gap 6 5-15 Blood Urea Nitrogen 19 9-23 mg/dL Creatinine 0.74 0.550-1.02 mg/dL Glomerular Filtration Rate Calc 100 >90 mL/min BUN/Creatinine Ratio 25.7 H 10.0-20.0 Serum Glucose 97 74-106 mg/dL Calcium Level 10.0 8.7-10.4 mg/dL Total Bilirubin 0.6 0.2-1.0 mg/dL Aspartate Amino Transferase (AST) 20 13-40 U/L Alanine Aminotransferase (ALT) 42 H 7-40 U/L Alkaline Phosphatase 98 46-116 U/L Total Protein 6.7 5.7-8.2 g/dL Albumin 4.4 3.2-4.8 g/dL Hemoglobin A1c 5.5 <5.7 % A1C Iron Level 83 50-170 ug/dL Total Iron Binding Capacity 409 250-425 ug/dL Percent Iron Saturation 20.3 15-50 % Vitamin B12 Level 826 211-911 pg/mL Vitamin D 25-Hydroxy 36.5 30.0-100 ng/mL Thyroid Stimulating Hormone (TSH) 3.09 0.55-4.78 uIU/mL Test 04/15/24 12:04 Range/Units Urine Color Colorless Yellow Urine Clarity Turbid H Clear Urine pH 7.5 5.0-9.0 Urine Specific [place] 1.010 1.001-1.035 Urine Protein Negative Negative Urine Ketones Negative Negative Urine Blood Negative Negative /uL Urine Nitrite Negative Negative Urine Bilirubin Negative Negative Urine Urobilinogen Normal Negative mg/dL Urine Leukocyte Esterase Negative Negative /uL Urine RBC 1 0 - 4 /hpf Urine WBC 3 0 - 5 /hpf Urine Squamous Epithelial Cells Few <5 /hpf Urine Bacteria Few H None Seen /hpf Urine Glucose Normal Normal mg/dL Imaging: CT abdomen pelvis IMPRESSION: 1. There is no acute process in the abdomen and pelvis.. 2. Mild fatty infiltration of the liver. 3. Bulky heterogeneous fibroid uterus. Assessment: Hematochezia, improving now Fatty liver History of constipation Plan: Discussed with Dr. Rivera High-fiber diet Stool softener Plan for outpatient colonoscopy, follow-up in GI clinic in four weeks Return to ER if bleeding continues Discussed plan with patient and RN Thank you for this consult Date of Service: Apr 16, 2024 Billing Provider: MARIAELENA DONALD Common Visit Codes: CONSULT ONLY Consultation Codes: [id number] CONSULT <45MIN MARIAELENA DONALD Apr 16, 2024 12:39
[2024-04-16 12:57] LABS: Amphetamine Screen, Urine Neg (NEGATIVE)
[2024-04-16 12:58] LABS: Barbiturate Scree,Urine Neg (NEGATIVE); Benzodiazephine Screen, Urine Neg (NEGATIVE); Cannabinoid Screen, Urine Neg (NEGATIVE); Cocaine Screen, Urine Neg (NEGATIVE); Opiate Scree,Urine Neg (NEGATIVE); Phencyclidine Screen, Urine Neg (NEGATIVE)
[2024-04-16 13:00] VITALS: BP 145/83; PULSE 76; RESP 18; TEMP 98; O2SAT 95
[2024-04-16] MEDS ORDERED: ATORVASTATIN 20 MG TAB PO SCH (18:00)
--- NOTE | 2024-04-16 18:22 | DVHDSRES ---
Discharge Summary Date of Admission Resident Creating Document: CARTER PATEL RESIDENT Apr 15, 2024 at 21:24 Date of Discharge: Apr 16, 2024 Admitting Diagnosis Rectal bleeding Labs/Diagnostic Data: Laboratory Results Test 04/16/24 11:22 04/16/24 10:30 04/16/24 07:11 04/15/24 21:49 Stool Occult Blood Negative (Negative) Stool Occult Blood Sample #3 (Negative) Urine Opiates Screen Neg (NEGATIVE) Urine Fentanyl Screen Neg (NEGATIVE) Urine Barbiturates Screen Neg (NEGATIVE) Urine Phencyclidine Screen Neg (NEGATIVE) Urine Amphetamines Screen Neg (NEGATIVE) Urine Benzodiazepines Screen Neg (NEGATIVE) Urine Cocaine Screen Neg (NEGATIVE) Urine Cannabinoids Screen Neg (NEGATIVE) White Blood Count 6.8 10^3/uL (4.4-10.8) Red Blood Count 4.82 10^6/uL (4.0-5.20) Hemoglobin 14.1 g/dL (12.2-16.2) Hematocrit 41.7 % (36.0-46.0) Mean Corpuscular Volume 86.5 fL (80.0-100.0) Mean Corpuscular Hemoglobin 29.2 pg (28.0-32.0) Mean Corpuscular Hemoglobin Concent 33.8 g/dL (32.0-36.0) Red Cell Distribution Width 13.5 % (11.8-14.3) Platelet Count 254 10^3/uL (140-450) Mean Platelet Volume 8.9 fL (6.9-10.8) Neutrophils (%) (Auto) 53.0 % (37.0-80.0) Lymphocytes (%) (Auto) 28.7 % (10.0-50.0) Monocytes (%) (Auto) 10.2 % (0.0-12.0) Eosinophils (%) (Auto) 7.2 % (0.0-7.0) Basophils (%) (Auto) 0.9 % (0.0-2.0) Neutrophils # (Auto) 3.6 10 ^3/uL (1.6-8.6) Lymphocytes # (Auto) 2.0 10 ^3/uL (0.4-5.4) Monocytes # (Auto) 0.7 10 ^3/uL (0-1.3) Eosinophils # (Auto) 0.5 10 ^3/uL (0-0.8) Basophils # (Auto) 0.1 10 ^3/uL (0-0.2) Nucleated Red Blood Cells 0.1 % Prothrombin Time 10.5 sec (9.3-11.8) Prothrombin Time INR 0.99 (0.9-1.15) Activated Partial Thromboplast Time 25.6 SEC (24.5-34.5) Sodium Level 142 mmol/L (136-145) Potassium Level 4.4 mmol/L (3.5-5.1) Chloride Level 110 mmol/L (98-107) Carbon Dioxide Level 26 mmol/L (20-31) Anion Gap 6 (5-15) Blood Urea Nitrogen 19 mg/dL (9-23) Creatinine 0.74 mg/dL (0.550-1.02) Glomerular Filtration Rate Calc 100 mL/min (>90) BUN/Creatinine Ratio 25.7 (10.0-20.0) Serum Glucose 97 mg/dL (74-106) Calcium Level 10.0 mg/dL (8.7-10.4) Total Bilirubin 0.6 mg/dL (0.2-1.0) Aspartate Amino Transferase (AST) 20 U/L (13-40) Alanine Aminotransferase (ALT) 42 U/L (7-40) Alkaline Phosphatase 98 U/L (46-116) Total Protein 6.7 g/dL (5.7-8.2) Albumin 4.4 g/dL (3.2-4.8) Hemoglobin A1c 5.5 % A1C (<5.7) Iron Level 83 ug/dL (50-170) Total Iron Binding Capacity 409 ug/dL (250-425) Percent Iron Saturation 20.3 % (15-50) Vitamin B12 Level 826 pg/mL (211-911) Vitamin D 25-Hydroxy 36.5 ng/mL (30.0-100) Thyroid Stimulating Hormone (TSH) 3.09 uIU/mL (0.55-4.78) Test 04/15/24 12:04 Urine Color Colorless (Yellow) Urine Clarity Turbid (Clear) Urine pH 7.5 (5.0-9.0) Urine Specific [place] 1.010 (1.001-1.035) Urine Protein Negative (Negative) Urine Ketones Negative (Negative) Urine Blood Negative /uL (Negative) Urine Nitrite Negative (Negative) Urine Bilirubin Negative (Negative) Urine Urobilinogen Normal mg/dL (Negative) Urine Leukocyte Esterase Negative /uL (Negative) Urine RBC 1 /hpf (0 - 4) Urine WBC 3 /hpf (0 - 5) Urine Squamous Epithelial Cells Few /hpf (<5) Urine Bacteria Few /hpf (None Seen) Urine Glucose Normal mg/dL (Normal) Other Laboratory Tests 04/16/24 07:11 Brief Hx & Hospital Course: 48 years old female with a PMH of pre DM, HLD, hypothyroidism, heart disease, HTN presented to the ED with the chief complaints of 3 episodes of bright red blood per rectum today morning. Patient reported she had 3 episodes of red blood in the stool associated with mucus, painless but crampy lower abdominal pain but denies nausea, vomiting, diarrhea, chest pain, shortness of breath, fatigue and other associated symptoms. Patient denies recent travel or sick contacts. Initial lab workup was nonsignificant. Hemodynamically level was stable. UDS negative. CT abdomen revealed- There is no acute process in the abdomen and pelvis. Mild fatty infiltration of the liver. Bulky heterogeneous fibroid uterus.Patient was treated conservatively. Admission patient denied any rectal bleeding. On physical exam patient was found to have small external hemorrhoids, no active bleeding. Patient was seen by outside plant supervisor, [id number], Stool softener, Plan for outpatient colonoscopy, follow-up in GI clinic in four weeks. Patient was discharged home in hemodynamically stable condition. Patient was advised to follow up with the PCP in 1 week and to follow up with the outside plant supervisor in 3-4 weeks. Past Medical History Pre DM, HLD, hypothyroidism, HTN Past Surgical History: Tubal Ligation Family History heart disease in mother Past Social History Lives with the . 2 glasses of wine every day but denies smoking other drug abuse General examination- , alert, oriented, conversant HEENT- PEERLA, no acute nasal discharge Cardiovascular- S1-S2 audible, rate and rhythm regular, no murmur Respiratory- CTAB, no wheeze or rhonchi Gastrointestinal-nontender, bowel sound+. Nondistended Musculoskeletal-no acute joint swelling or tenderness or redness# Lower extremity- no leg edema Neurological- cranial nerves intact, no acute dysarthria or dysphagia Psychiatry- denies depression or SI or HI Skin- no acute rash or purpura Operations or Procedures Signed PATIENT: ANA ROMAN ACCT: [id number] UNIT: [id number] : 1975 LOC: [facility] AGE / SEX: 48 / F ADM STATUS: ADM IN SERVICE 0800 ORDERING PHYSICIAN: CARTER PATEL RESIDENT PROCEDURE(s): ABPLC - CT ABD PELVIS W CON-ORAL & IV REASON: GI BLEED ORDER NUMBER(s): [id number], ACCESSION NUMBER(s): [id number] Exam: CT CT ABD PELVIS W CON-ORAL IV History: GI BLEED Comparison Study: TECHNIQUE: A digital mutual funds agent image was obtained. During the uneventful, intravenous administration of contrast material, multislice data acquisition was obtained through the abdomen and pelvis. The data set was subsequently reconstructed into axial images. Images were reviewed on a work station using a combination of axial and multiplanar using a variety of window levels and settings. 100 cc of Omnipaque 300 contrast was injected intravenously. All CT scans at this medical facility are performed using dose modulation techniques as appropriate to a performed exam including the following:Automated exposure control was utilized; adjustment of the MA and/or KV according to patient size; and use of iterative reconstruction technique. Radiation Dose Information: CT Dose: CTDI volume is 15 mGy. Dose-length product is 749 mGy*cm Comparison: CT AB PEL WITH IV CON ONLY on DOS: 05/14/21 FINDINGS: There is mild fatty infiltration of the liver . There is no suspicious appearing hepatic lesion. The gallbladder, pancreas, kidneys, adrenal glands, and spleen appear within normal limits. There is no evidence of abdominal lymphadenopathy. There is no free fluid or free air. The stomach grossly appears unremarkable. The small and large bowel loops demonstrate normal caliber. The abdominal aorta and IVC appear within normal limits. The bladder appears within normal limits the degree of distention. The uterus appears bulky and heterogeneous likely related fibroid changes. There is no evidence of a pelvic mass or lymphadenopathy. There is no free fluid collection. Lung bases are clear. There is no acute osseous abnormality. IMPRESSION: 1. There is no acute process in the abdomen and pelvis.. 2. Mild fatty infiltration of the liver. 3. Bulky heterogeneous fibroid uterus. HS:Y ATED BY: DAVI FOWLER MD DICTATED DATE/TIME: 04/16/241041 SIGNED BY: DAVI FOWLER MD SIGNED DATE/TIME: 04/16/241041 CC: Condition at Discharge: Stable Final Diagnosis/Problems List per rectal bleeding bleeding likely due to hemorrhoids External hemorrhoids Hypertension Hypothyroidism Codeine dependence Obesity Discharge Disposition: Home Discharge Instruct/Medications Diet: Cardiac 2g Na,low cholest Activity: No Restrictions, As Tolerated Follow Up/Referral: please follow up with PCP in one week also follow up with Gastroenterology for further evaluation and care of per rectal bleeding Discharge Statement: "Patient was advised to return to the ER or call 911 if any headaches, dizziness, shortness of breath, chest pain, abdominal pain, bleeding, fevers, or worsening of medical condition. Patient was counseled about treatment plan, medications, possible side effects, patientverbalized understanding. All questions were answered to the best of my ability. This discharge took greater then 30 minutes in planning, reviewing documentation, counseling the patient, and discussing with other team members." ASSESSMENT ASSESSMENT Assessment per rectal bleeding bleeding due to hemorrhoids Date of Service: Apr 16, 2024 Billing Provider: DANYELLE NIELSEN MD Common Visit Codes: 25186-ZYZ/OBS DISCH DAY >30min ALEX SPENCER RESIDENT Apr 16, 2024 18:22 DANYELLE NIELSEN MD Apr 16, 2024 21:40
== END 2024-04-16 15:30 | disposition home or self-care (01) | DRG 254 ==
LOC: ER 12:01 → TELE 21:24 → TELE-WESTW 21:29
PROVIDERS: ADMIT Internal Medicine Geriatric Medicine; ATTEND Internal Medicine Geriatric Medicine
DX: K64.4 Residual hemorrhoidal skin tags (principal); K76.0 Fatty (change of) liver, not elsewhere classified; D25.9 Leiomyoma of uterus, unspecified; F17.210 Nicotine dependence, cigarettes, uncomplicated; I10 Essential (primary) hypertension; E66.9 Obesity, unspecified; F11.20 Opioid dependence, uncomplicated; E03.9 Hypothyroidism, unspecified; E11.9 Type 2 diabetes mellitus without complications; Z79.899 Other long term (current) drug therapy; Z68.32 Body mass index [BMI] 32.0-32.9, adult; K29.00 Acute gastritis without bleeding
CPT/HCPCS: 36415; 74177; 80048; 80053; 80307; 81001; 82270; 82306; 82607; 83036; 83540; 83550; 84443; 85025; 85610; 85730; 87081; 99291; G0378; J2470